=== PATIENT | female | born 1945 | race African-American/Black ===

== ENCOUNTER 2019-01-29 09:53 | Inpatient (IN) | payer MEDICARE, OTHER ==
[2019-01-29] VITALS (33 sets, daily range): BP systolic 114–153; BP diastolic 50–88
[~2019-01-29] VITALS: Ht 162.6 cm; Wt 115.8 kg
[2019-01-29 11:27] LABS: BASOPHILS % 1.1 % (0.0-2.0); EOSINOPHILS % 1.6 % (0.0-5.0); HEMATOCRIT. 42.1 % (36.0-48.0); HEMOGLOBIN. 14.1 g/dL (12.0-16.0); LYMPHOCYTES % 22.4 % (20.0-50.0); MEAN CORPUSCULAR HEMOGLOBIN 28.2 pg (28.0-32.0); MEAN CORPUSCULAR VOLUME 84.2 fL (81.0-99.0); MEAN PLATELET VOLUME 9.8 fl (7.4-10.4); MONOCYTES % 6.3 % (2.0-8.0); NEUTROPHILS % 68.6 % (40.0-76.0); PLATELET 362 x1000/uL (130-400); RED BLOOD CELL COUNT 4.99 mill/uL (4.2-5.4)
[2019-01-29 11:33] LABS: CHLORIDE 107 mEq/L (98-107)
[2019-01-29 11:42] LABS: CREATINE KINASE 36 IU/L (26-192)
[2019-01-29 12:40] LABS: CLARITY URINE CLEAR (CLEAR); COLOR URINE YELLOW (YELLOW); KETONES URINE NEGATIVE (NEGATIVE); LEUKOCYTE ESTERASE URINE NEGATIVE (NEGATIVE); NITRITE URINE NEGATIVE (NEGATIVE); OCCULT BLOOD URINE TRACE (NEGATIVE); PROTEIN URINE TRACE (NEGATIVE); SPECIFIC GRAVITY URINE 1.009 (1.005-1.030); UROBILINOGEN URINE 0.2 E.U./dL (0.2-1.0)
[2019-01-29] MEDS ORDERED: PHENYTOIN SODIUM 1,000 MG in SODIUM CHLORIDE 0.9% 100 ML IV ONE (13:30)
[2019-01-29] MEDS ORDERED: DEXT 5%/LACTATED RINGERS 1,000 ML IV ONE (13:45)
[2019-01-29 14:25] LABS: PARTIAL THROMBOPLASTIN TIME 25.5 sec (23.4-31.0)
[2019-01-29] MEDS ORDERED: DEXT 5%/LACTATED RINGERS 1,000 ML IV SCH (16:15)
[2019-01-29] MEDS ORDERED: NICARDIPINE 100 MG in SODIUM CHLORIDE 0.9% 60 ML IV PRN (16:30)
[2019-01-29] MEDS: PHENYTOIN SODIUM 100MG/2ML VIAL IV SCH (21:47)
[2019-01-30] VITALS (53 sets, daily range): BP systolic 108–144; BP diastolic 51–93
[2019-01-30] MEDS: PHENYTOIN SODIUM 100MG/2ML VIAL IV SCH (05:30)
[2019-01-30] MEDS ORDERED: ASPI-1159 MT (12:02)
[2019-01-30] MEDS ORDERED: MULT-230 MT (12:02)
[2019-01-30] MEDS ORDERED: ACETAMINOPHEN 325MG TABLET PO PRN (12:15)
[2019-01-30] MEDS ORDERED: ACETAMINOPHEN 650MG/20.3ML UDC PO PRN (12:15)
[2019-01-30] MEDS ORDERED: ASPI-1159 PO (12:57)
[2019-01-30 13:11] LABS: BASOPHILS % 1.3 % (0.0-2.0); EOSINOPHILS % 2.6 % (0.0-5.0); HEMATOCRIT. 38.9 % (36.0-48.0); HEMOGLOBIN. 13.1 g/dL (12.0-16.0); LYMPHOCYTES % 24.9 % (20.0-50.0); MEAN CORPUSCULAR HEMOGLOBIN 28.3 pg (28.0-32.0); MEAN CORPUSCULAR VOLUME 83.7 fL (81.0-99.0); MEAN PLATELET VOLUME 9.8 fl (7.4-10.4); MONOCYTES % 7.5 % (2.0-8.0); NEUTROPHILS % 63.7 % (40.0-76.0); PLATELET 314 x1000/uL (130-400); RED BLOOD CELL COUNT 4.65 mill/uL (4.2-5.4); RED CELL DISTRIBUTION WIDTH 13.9 % (11.6-14.6)
[2019-01-30 13:20] LABS: CHLORIDE 106 mEq/L (98-107)
[2019-01-30 13:29] LABS: LDL CHOLESTEROL 53 mg/dL (5-100)
[2019-01-30 13:31] LABS: HDL CHOLESTEROL 55 mg/dL (40-59)
[2019-01-30] MEDS: PHENYTOIN SODIUM EXTENDED 100MG CAPSULE PO SCH ×2 (14:07→21:43)
[2019-01-31] VITALS (7 sets, daily range): BP systolic 111–127; BP diastolic 58–72
[2019-01-31] MEDS: PHENYTOIN SODIUM EXTENDED 100MG CAPSULE PO SCH ×2 (05:48→13:19)
[2019-01-31] MEDS ORDERED: PHEN100C4 MT (10:53)
[2019-01-31 13:15] LABS: BASOPHILS % 1.3 % (0.0-2.0); EOSINOPHILS % 2.9 % (0.0-5.0); HEMATOCRIT. 38.8 % (36.0-48.0); HEMOGLOBIN. 12.9 g/dL (12.0-16.0); LYMPHOCYTES % 19.3 % (20.0-50.0); MEAN CORPUSCULAR HEMOGLOBIN 28.1 pg (28.0-32.0); MEAN CORPUSCULAR VOLUME 84.5 fL (81.0-99.0); MONOCYTES % 7.7 % (2.0-8.0); NEUTROPHILS % 68.8 % (40.0-76.0); RED BLOOD CELL COUNT 4.59 mill/uL (4.2-5.4)
[2019-01-31 13:25] LABS: CHLORIDE 104 mEq/L (98-107)
[2019-01-31 15:29] LABS: MEAN PLATELET VOLUME 10.3 fl (7.4-10.4); PLATELET 286 x1000/uL (130-400)
== END 2019-01-31 15:50 | disposition home health service (06) | DRG 65 ==
LOC: ER 09:53 → MICUSO 13:34 → EDBEDREQ 13:37 → ENRESERV 13:38 → MICUSO 16:00 → 8WST 01-30 15:00
PROVIDERS: ADMIT Family Medicine; ATTEND Family Medicine
DX: I61.1 Nontraumatic intracerebral hemorrhage in hemisphere, cortical (principal); Z68.41 Body mass index [BMI] 40.0-44.9, adult; G40.909 Epilepsy, unspecified, not intractable, without status epilepticus; E66.9 Obesity, unspecified; R73.9 Hyperglycemia, unspecified; F32.9 Major depressive disorder, single episode, unspecified; I10 Essential (primary) hypertension; Z98.51 Tubal ligation status
CPT/HCPCS: 36415; 80061; 82550; 83036; 83735; 84100; 84484; 93970; 96365; 96367; 97162; 99285; J1165; J3490; J7050; J7121

== ENCOUNTER 2019-02-16 23:18 | Emergency (ER) | payer MEDICARE, MEDICAID, OTHER ==
[~2019-02-16] VITALS: Ht 162.6 cm; Wt 100.0 kg
[~2019-02-16 23:18] MED LIST: MULT-230 MT; PHEN100C4 MT
[2019-02-17 01:42] VITALS: BP 126/77
[2019-03-12] MEDS ORDERED: CARB100O PO (10:33)
[2019-03-12] MEDS ORDERED: AMLO5TAB4 MT (10:33)
[2019-03-12] MEDS ORDERED: SIMV20TA6 MT (10:33)
[2019-03-12] MEDS ORDERED: ENAL5TAB75 MT (10:33)
[2019-03-14] MEDS ORDERED: LAM25 PO (10:43)
== END 2019-02-17 02:46 | disposition home or self-care (01) ==
LOC: ER 23:18
DX: I10 Essential (primary) hypertension (principal)
CPT/HCPCS: 93005; 99283

== ENCOUNTER 2019-03-08 18:06 | Emergency (ER) | payer MEDICARE, MEDICAID, OTHER ==
[~2019-03-08] VITALS: Ht 162.6 cm; Wt 93.0 kg
[2019-03-08] MEDS ORDERED: OXCA150T29 PO (18:35)
[2019-03-08] MEDS ORDERED: SODIUM CHLORIDE 0.9% 1,000 ML IV ONE (21:12)
[2019-03-08 21:39] LABS: BASOPHILS % 0.9 % (0.0-2.0); HEMATOCRIT. 42.5 % (36.0-48.0); HEMOGLOBIN. 14.5 g/dL (12.0-16.0); LYMPHOCYTES % 23.2 % (20.0-50.0); MEAN CORPUSCULAR VOLUME 84.8 fL (81.0-99.0); MEAN PLATELET VOLUME 9.9 fl (7.4-10.4); MONOCYTES % 7.2 % (2.0-8.0); NEUTROPHILS % 66.7 % (40.0-76.0); PLATELET 284 x1000/uL (130-400); RED BLOOD CELL COUNT 5.02 mill/uL (4.2-5.4); RED CELL DISTRIBUTION WIDTH 14.3 % (11.6-14.6)
[2019-03-08 21:42] LABS: CHLORIDE 102 mEq/L (98-107)
[2019-03-09 00:08] LABS: CLARITY URINE CLEAR (CLEAR); COLOR URINE YELLOW (YELLOW); KETONES URINE NEGATIVE (NEGATIVE); LEUKOCYTE ESTERASE URINE NEGATIVE (NEGATIVE); NITRITE URINE NEGATIVE (NEGATIVE); OCCULT BLOOD URINE NEGATIVE (NEGATIVE); PH URINE 5.5 (4.5-8.0); PROTEIN URINE NEGATIVE (NEGATIVE); SPECIFIC GRAVITY URINE 1.008 (1.005-1.030); UROBILINOGEN URINE 0.2 E.U./dL (0.2-1.0)
[2019-03-09 02:25] VITALS: BP 159/83
[2019-03-12] MEDS ORDERED: SIMV20TA6 MT (10:33)
[2019-03-12] MEDS ORDERED: AMLO5TAB4 MT (10:33)
[2019-03-12] MEDS ORDERED: CARB100O PO (10:33)
[2019-03-12] MEDS ORDERED: ENAL5TAB75 MT (10:33)
[2019-03-14] MEDS ORDERED: LAM25 PO (10:43)
== END 2019-03-09 03:29 | disposition home or self-care (01) ==
LOC: ER 19:06
DX: R42 Dizziness and giddiness (principal); G40.909 Epilepsy, unspecified, not intractable, without status epilepticus; I10 Essential (primary) hypertension
CPT/HCPCS: 36415; 71045; 80053; 80156; 81003; 83880; 84484; 85025; 93005; 96360; 99284; J7030

== ENCOUNTER 2019-03-19 01:30 | Emergency (ER) | payer MEDICARE, OTHER ==
[~2019-03-19] VITALS: Ht 162.6 cm; Wt 103.0 kg
[~2019-03-19 01:30] MED LIST changes: +AMLO5TAB4 MT; +CARB100O PO; +ENAL5TAB75 MT; +LAM25 PO; +OXCA150T29 PO; -PHEN100C4 MT; +SIMV20TA6 MT
[2019-03-19] MEDS ORDERED: SODIUM CHLORIDE 0.9% 1,000 ML IV ONE (02:59)
[2019-03-19] MEDS ORDERED: ONDANSETRON HCL 4MG/2ML INJ IV STA (02:59)
[2019-03-19 03:33] LABS: BASOPHILS % 1.1 % (0.0-2.0); EOSINOPHILS % 1.2 % (0.0-5.0); HEMATOCRIT. 39.6 % (36.0-48.0); HEMOGLOBIN. 13.7 g/dL (12.0-16.0); LYMPHOCYTES % 17.9 % (20.0-50.0); MEAN CORPUSCULAR HEMOGLOBIN 28.9 pg (28.0-32.0); MEAN CORPUSCULAR VOLUME 83.4 fL (81.0-99.0); MEAN PLATELET VOLUME 9.4 fl (7.4-10.4); MONOCYTES % 7.8 % (2.0-8.0); PLATELET 269 x1000/uL (130-400); RED BLOOD CELL COUNT 4.75 mill/uL (4.2-5.4); RED CELL DISTRIBUTION WIDTH 14.1 % (11.6-14.6)
[2019-03-19 03:47] LABS: CHLORIDE 99 mEq/L (98-107)
[2019-03-19 03:50] LABS: PROTHROMBIN TIME 10.3 sec (9.6-11.0)
[2019-03-19 03:58] LABS: CARBAMAZEPINE 5.7 ug/mL (4-12)
[2019-03-19 06:10] VITALS: BP 142/79
== END 2019-03-19 06:16 | disposition home or self-care (01) ==
LOC: ER 01:30
DX: R11.2 Nausea with vomiting, unspecified (principal); R53.1 Weakness
CPT/HCPCS: 36415; 80053; 80156; 83690; 84484; 85025; 85610; 93005; 96361; 96374; 99284; J7030

== ENCOUNTER 2019-05-16 04:47 | Emergency (ER) | payer MEDICARE, OTHER ==
[~2019-05-16] VITALS: Ht 157.5 cm; Wt 73.0 kg
[2019-05-16] MEDS ORDERED: ONDANSETRON HCL 4MG/2ML INJ IV STA (05:12)
[2019-05-16] MEDS ORDERED: SODIUM CHLORIDE 0.9% 1,000 ML IV ONE (05:12)
[2019-05-16 05:59] LABS: CHLORIDE 102 mEq/L (98-107)
[2019-05-16 06:20] LABS: CARBAMAZEPINE < 0.5 ug/mL (4-12); VALPROIC ACID < 3.0 ug/mL (50-100)
[2019-05-16 07:40] VITALS: BP 141/81
[2019-05-16 08:57] LABS: BASOPHILS % 0.7 % (0.0-2.0); EOSINOPHILS % 2.3 % (0.0-5.0); HEMATOCRIT. 39.4 % (36.0-48.0); HEMOGLOBIN. 13.5 g/dL (12.0-16.0); LYMPHOCYTES % 29.7 % (20.0-50.0); MEAN CORPUSCULAR HEMOGLOBIN 29.2 pg (28.0-32.0); MEAN CORPUSCULAR VOLUME 85.6 fL (81.0-99.0); MEAN PLATELET VOLUME 9.6 fl (7.4-10.4); MONOCYTES % 9.4 % (2.0-8.0); NEUTROPHILS % 57.9 % (40.0-76.0); PLATELET 239 x1000/uL (130-400); RED BLOOD CELL COUNT 4.61 mill/uL (4.2-5.4); RED CELL DISTRIBUTION WIDTH 13.9 % (11.6-14.6)
[2019-05-16 09:44] LABS: CLARITY URINE CLEAR (CLEAR); COLOR URINE YELLOW (YELLOW); KETONES URINE NEGATIVE (NEGATIVE); LEUKOCYTE ESTERASE URINE NEGATIVE (NEGATIVE); NITRITE URINE NEGATIVE (NEGATIVE); OCCULT BLOOD URINE 2+ (NEGATIVE); PROTEIN URINE NEGATIVE (NEGATIVE); SPECIFIC GRAVITY URINE 1.006 (1.005-1.030)
[2019-05-16] MEDS ORDERED: LAMOTRIGINE 25MG TABLET PO SCH (09:45)
[2019-05-16] MEDS ORDERED: AMLODIPINE 5MG TABLET PO ONE (09:45)
[2019-05-16] MEDS ORDERED: ENALAPRIL 5MG TABLET PO SCH (09:45)
== END 2019-05-16 10:22 | disposition home or self-care (01) ==
LOC: ER 04:47
DX: G40.901 Epilepsy, unspecified, not intractable, with status epilepticus (principal); I10 Essential (primary) hypertension
CPT/HCPCS: 36415; 71045; 80053; 80156; 80165; 81003; 85025; 93005; 96361; 96374; 99284; J2405; J7030

== ENCOUNTER 2019-06-17 11:54 | Inpatient (IN) | payer MEDICARE, OTHER ==
[~2019-06-17] VITALS: Ht 162.6 cm; Wt 97.5 kg
[2019-06-17] MEDS ORDERED: MECLIZINE 25MG TABLET PO PRN (15:30)
[2019-06-17] MEDS ORDERED: HYDROCODONE/ACETAMINOPHEN 5/325MG TABLET PO PRN (15:30)
[2019-06-17] MEDS ORDERED: DOCUSATE SODIUM 100MG CAPSULE PO PRN (15:30)
[2019-06-17] MEDS ORDERED: ONDANSETRON HCL 4MG/2ML INJ IV PRN (15:30)
[2019-06-17] MEDS ORDERED: LORAZEPAM 2MG/ML CPJ IV PRN (15:30)
[2019-06-17] MEDS ORDERED: CLONIDINE 0.1MG TABLET PO PRN (15:30)
[2019-06-17] MEDS ORDERED: GUAIFENESIN 200MG/10ML SUGAR FREE UDC PO PRN (15:30)
[2019-06-17 15:33] LABS: EOSINOPHILS % 1.5 % (0.0-5.0); HEMATOCRIT. 38.8 % (36.0-48.0); HEMOGLOBIN. 13.4 g/dL (12.0-16.0); LYMPHOCYTES % 23.3 % (20.0-50.0); MEAN CORPUSCULAR HEMOGLOBIN 29.5 pg (28.0-32.0); MEAN CORPUSCULAR VOLUME 85.2 fL (81.0-99.0); MEAN PLATELET VOLUME 9.5 fl (7.4-10.4); MONOCYTES % 8.4 % (2.0-8.0); NEUTROPHILS % 65.8 % (40.0-76.0); PLATELET 263 x1000/uL (130-400); RED BLOOD CELL COUNT 4.55 mill/uL (4.2-5.4); RED CELL DISTRIBUTION WIDTH 13.9 % (11.6-14.6)
[2019-06-17 15:38] LABS: PROTHROMBIN TIME 10.3 sec (9.6-11.0)
[2019-06-17 15:40] LABS: CHLORIDE 99 mEq/L (98-107)
[2019-06-17 15:45] LABS: ETHANOL BLOOD < 10 mg/dL
[2019-06-17 15:49] LABS: LDL CHOLESTEROL 32 mg/dL (5-100)
[2019-06-17 16:00] VITALS: BP 141/77
[2019-06-17] MEDS ORDERED: CARBAMAZEPINE 200MG/10ML UDC PO SCH (18:00)
[2019-06-17] MEDS: SODIUM CHLORIDE 0.45% 1,000 ML IV SCH (18:46)
[2019-06-17] MEDS: OXCARBAZEPINE 300MG TABLET PO SCH (21:00)
[2019-06-17] MEDS: LAMOTRIGINE 100MG TABLET PO SCH (21:27)
[2019-06-17] MEDS: LEVETIRACETAM 500MG TABLET PO SCH (21:27)
[2019-06-18] VITALS: BP 108/53
[2019-06-18 04:00] VITALS: BP 104/57
[2019-06-18 08:00] VITALS: BP 104/54
[2019-06-18] MEDS: AMLODIPINE 10MG TABLET PO SCH (09:00)
[2019-06-18] MEDS: LEVETIRACETAM 500MG TABLET PO SCH ×2 (09:55→21:01)
[2019-06-18] MEDS: LAMOTRIGINE 100MG TABLET PO SCH ×2 (09:55→21:01)
[2019-06-18] MEDS: OXCARBAZEPINE 300MG TABLET PO SCH (09:56)
[2019-06-18 12:00] VITALS: BP 126/59
[2019-06-18] MEDS: ENOXAPARIN 30MG/0.3ML SYR SUBCUT SCH ×2 (12:36→21:02)
[2019-06-18] MEDS ORDERED: SODIUM BICARBONATE 4% (2.4MEQ) 5ML VIAL IV ONE (13:19)
[2019-06-18] MEDS ORDERED: LIDOCAINE HCL 1% 20ML VIAL (Pyxis) INJ ONE (13:19)
[2019-06-18] MEDS: SODIUM CHLORIDE 0.45% 1,000 ML IV SCH (15:08)
[2019-06-18 16:00] VITALS: BP 106/60
[2019-06-18 20:00] VITALS: BP 147/84
[2019-06-19] VITALS: BP 125/74
[2019-06-19] MEDS: SODIUM CHLORIDE 0.45% 1,000 ML IV SCH ×2 (01:14→08:51)
[2019-06-19 04:00] VITALS: BP 111/65
[2019-06-19 07:06] LABS: CHLORIDE 105 mEq/L (98-107)
[2019-06-19 07:16] LABS: BASOPHILS % 0.9 % (0.0-2.0); EOSINOPHILS % 2.1 % (0.0-5.0); HEMATOCRIT. 37.2 % (36.0-48.0); HEMOGLOBIN. 12.8 g/dL (12.0-16.0); LYMPHOCYTES % 32.8 % (20.0-50.0); MEAN CORPUSCULAR HEMOGLOBIN 29.2 pg (28.0-32.0); MEAN CORPUSCULAR VOLUME 85.2 fL (81.0-99.0); MEAN PLATELET VOLUME 9.8 fl (7.4-10.4); MONOCYTES % 11.9 % (2.0-8.0); NEUTROPHILS % 52.3 % (40.0-76.0); PLATELET 265 x1000/uL (130-400); RED BLOOD CELL COUNT 4.37 mill/uL (4.2-5.4)
[2019-06-19 08:00] VITALS: BP 127/70
[2019-06-19] MEDS: AMLODIPINE 10MG TABLET PO SCH (08:48)
[2019-06-19] MEDS: MULTIVITAMINS,THER W-MINERALS TABLET PO SCH (08:49)
[2019-06-19] MEDS: LEVETIRACETAM 500MG TABLET PO SCH ×2 (08:49→20:24)
[2019-06-19] MEDS: ENALAPRIL 5MG TABLET PO SCH ×3 (08:49→10:07)
[2019-06-19] MEDS: LAMOTRIGINE 100MG TABLET PO SCH ×2 (08:49→20:24)
[2019-06-19] MEDS: ENOXAPARIN 30MG/0.3ML SYR SUBCUT SCH ×2 (08:50→20:25)
[2019-06-19 12:00] VITALS: BP 112/59
[2019-06-19 16:00] VITALS: BP 111/54
[2019-06-19] MEDS: ACETAMINOPHEN 325MG TABLET PO PRN (16:52)
[2019-06-19 20:00] VITALS: BP 124/66
[2019-06-19] MEDS ORDERED: ATORVASTATIN CALCIUM 20MG TABLET PO SCH (21:00)
[2019-06-20] VITALS: BP 132/71
[2019-06-20 04:00] VITALS: BP 118/62
[2019-06-20] MEDS: ENOXAPARIN 30MG/0.3ML SYR SUBCUT SCH (09:47)
[2019-06-20] MEDS: AMLODIPINE 10MG TABLET PO SCH (09:48)
[2019-06-20] MEDS: MULTIVITAMINS,THER W-MINERALS TABLET PO SCH (09:48)
[2019-06-20] MEDS: LAMOTRIGINE 100MG TABLET PO SCH (09:49)
[2019-06-20] MEDS: SODIUM CHLORIDE 0.45% 1,000 ML IV SCH (09:50)
[2019-06-20] MEDS: LEVETIRACETAM 500MG TABLET PO SCH (09:54)
[2019-06-20] MEDS: ACETAMINOPHEN 325MG TABLET PO PRN (09:55)
[2019-06-20 14:22] VITALS: BP 123/75
== END 2019-06-20 17:00 | disposition home health service (06) | DRG 74 ==
LOC: ER 11:54 → 8WST 13:09 → EDBEDREQ 13:10 → EDBEDREQSVC 13:10 → ENRESERV 14:46
PROVIDERS: ADMIT Hospitalist; ATTEND Hospitalist
PROC: 02HV33Z Insertion of Infusion Device into Superior Vena Cava, Percutaneous Approach (ICD-10-PCS; 2019-06-18)
PROC: B5181ZA Fluoroscopy of Superior Vena Cava using Low Osmolar Contrast, Guidance (ICD-10-PCS; 2019-06-18)
PROC: B548ZZA Ultrasonography of Superior Vena Cava, Guidance (ICD-10-PCS; 2019-06-18)
PROC: 4A00X4Z Measurement of Central Nervous Electrical Activity, External Approach (ICD-10-PCS; principal; 2019-06-19)
DX: G90.8 Other disorders of autonomic nervous system (principal); G40.909 Epilepsy, unspecified, not intractable, without status epilepticus; I10 Essential (primary) hypertension; E66.01 Morbid (severe) obesity due to excess calories; F41.9 Anxiety disorder, unspecified; M19.90 Unspecified osteoarthritis, unspecified site; Z86.73 Personal history of transient ischemic attack (TIA), and cerebral infarction without residual deficits; Z88.9 Allergy status to unspecified drugs, medicaments and biological substances; R26.9 Unspecified abnormalities of gait and mobility; E78.5 Hyperlipidemia, unspecified; Z68.36 Body mass index [BMI] 36.0-36.9, adult
CPT/HCPCS: 36415; 36573; 70551; 71045; 80320; 82542; 82962; 83721; 83735; 84484; 93005; 93970; 97166; 99285; C1725; J1650; J2060; J3490; G0480

== ENCOUNTER 2019-07-27 05:29 | Emergency (ER) | payer MEDICARE, OTHER ==
[~2019-07-27] VITALS: Ht 162.6 cm; Wt 104.0 kg
[2019-07-27] MEDS ORDERED: SODIUM CHLORIDE 0.9% 1,000 ML IV ONE (06:21)
[2019-07-27 07:23] LABS: CHLORIDE 106 mEq/L (98-107)
[2019-07-27 07:27] LABS: BASOPHILS % 0.8 % (0.0-2.0); EOSINOPHILS % 1.8 % (0.0-5.0); HEMATOCRIT. 41.3 % (36.0-48.0); HEMOGLOBIN. 14.2 g/dL (12.0-16.0); LYMPHOCYTES % 28.2 % (20.0-50.0); MEAN CORPUSCULAR HEMOGLOBIN 29.3 pg (28.0-32.0); MEAN CORPUSCULAR VOLUME 85.3 fL (81.0-99.0); MEAN PLATELET VOLUME 9.7 fl (7.4-10.4); MONOCYTES % 7.5 % (2.0-8.0); NEUTROPHILS % 61.7 % (40.0-76.0); PLATELET 300 x1000/uL (130-400); RED BLOOD CELL COUNT 4.84 mill/uL (4.2-5.4); RED CELL DISTRIBUTION WIDTH 13.9 % (11.6-14.6)
[2019-07-27 09:15] VITALS: BP 150/80
[2019-07-27] MEDS ORDERED: LEVETIRACETAM 500MG TABLET PO ONE (09:15)
[2019-07-27 09:23] LABS: CLARITY URINE CLEAR (CLEAR); COLOR URINE YELLOW (YELLOW); KETONES URINE NEGATIVE (NEGATIVE); LEUKOCYTE ESTERASE URINE NEGATIVE (NEGATIVE); NITRITE URINE NEGATIVE (NEGATIVE); OCCULT BLOOD URINE NEGATIVE (NEGATIVE); PH URINE 5.5 (4.5-8.0); PROTEIN URINE NEGATIVE (NEGATIVE); SPECIFIC GRAVITY URINE 1.008 (1.005-1.030); UROBILINOGEN URINE 0.2 E.U./dL (0.2-1.0)
== END 2019-07-27 09:50 | disposition home or self-care (01) ==
LOC: ER 06:02
DX: E86.0 Dehydration (principal); I10 Essential (primary) hypertension; G40.909 Epilepsy, unspecified, not intractable, without status epilepticus
CPT/HCPCS: 36415; 71045; 80053; 81003; 84484; 85025; 93005; 96360; 96361; 99284; J7030

== ENCOUNTER 2019-11-18 16:23 | Inpatient (IN) | payer MEDICARE, OTHER ==
[~2019-11-18] VITALS: Ht 163.8 cm; Wt 111.6 kg
[~2019-11-18 16:23] MED LIST changes: +SIMV-43 MT; -SIMV20TA6 MT
[2019-11-18] MEDS ORDERED: LEVOFLOXACIN 750MG PREMIX 150 ML IV ONE (22:15)
[2019-11-18] MEDS ORDERED: SODIUM CHLORIDE 0.9% 1000ML BAG (SEPSIS BOLUS) IV ONE (22:15)
[2019-11-18 22:47] LABS: CLARITY URINE CLEAR (CLEAR); COLOR URINE YELLOW (YELLOW); KETONES URINE NEGATIVE (NEGATIVE); LEUKOCYTE ESTERASE URINE NEGATIVE (NEGATIVE); NITRITE URINE NEGATIVE (NEGATIVE); OCCULT BLOOD URINE 2+ (NEGATIVE); PROTEIN URINE NEGATIVE (NEGATIVE); SPECIFIC GRAVITY URINE 1.004 (1.005-1.030); UROBILINOGEN URINE 0.2 E.U./dL (0.2-1.0)
[2019-11-18 22:59] LABS: CHLORIDE 106 mEq/L (98-107)
[2019-11-18 23:02] LABS: HEMATOCRIT. 41.2 % (36.0-48.0); HEMOGLOBIN. 14.2 g/dL (12.0-16.0); LYMPHOCYTES % 29.5 % (20.0-50.0); MEAN CORPUSCULAR HEMOGLOBIN 29.2 pg (28.0-32.0); MEAN PLATELET VOLUME 9.2 fl (7.4-10.4); MONOCYTES % 8.8 % (2.0-8.0); NEUTROPHILS % 58.7 % (40.0-76.0); PLATELET 290 x1000/uL (130-400); RED BLOOD CELL COUNT 4.85 mill/uL (4.2-5.4); RED CELL DISTRIBUTION WIDTH 13.7 % (11.6-14.6)
[2019-11-18 23:19] LABS: CARBAMAZEPINE < 0.5 ug/mL (4-12)
[2019-11-18] MEDS ORDERED: ASPIRIN 325MG EC TABLET PO ONE (23:30)
[2019-11-19] VITALS (7 sets, daily range): BP systolic 109–134; BP diastolic 42–79
[2019-11-19] MEDS ORDERED: ONDANSETRON HCL 4MG/2ML INJ IV PRN (09:00)
[2019-11-19] MEDS ORDERED: KEPP500 PO (09:34)
[2019-11-19] MEDS ORDERED: KEPP250 PO (09:34)
[2019-11-19] MEDS ORDERED: IBUP-2029 PO (09:34)
[2019-11-19] MEDS: LEVETIRACETAM 250MG TABLET PO SCH (09:56)
[2019-11-19 15:14] LABS: *AMPHETAMINES SCREEN URINE NEGATIVE (NEGATIVE); *BARBITURATES SCREEN URINE NEGATIVE (NEGATIVE); *BENZODIAZEPINES SCREEN URINE NEGATIVE (NEGATIVE); *COCAINE SCREEN URINE NEGATIVE (NEGATIVE); METHADONE URINE SCREEN NEGATIVE (NEGATIVE); OPIATES URINE SCREEN PRESUMTIVE POSITIVE (NEGATIVE)
[2019-11-19 15:15] LABS: CANNABINOID URINE SCREEN NEGATIVE (NEGATIVE); PHENCYCLIDINE URINE SCREEN NEGATIVE (NEGATIVE)
[2019-11-19] MEDS: LEVETIRACETAM 500MG TABLET PO SCH (17:21)
[2019-11-19] MEDS: ACETAMINOPHEN 325MG TABLET PO PRN (18:48)
[2019-11-19] MEDS: ENOXAPARIN 30MG/0.3ML SYR SUBCUT SCH (20:24)
[2019-11-20] VITALS: BP 114/57
[2019-11-20] MEDS: ACETAMINOPHEN 325MG TABLET PO PRN ×2 (01:56→08:27)
[2019-11-20 04:00] VITALS: BP 132/71
[2019-11-20 06:21] LABS: BASOPHILS % 0.5 % (0.0-2.0); EOSINOPHILS % 2.7 % (0.0-5.0); HEMATOCRIT. 36.3 % (36.0-48.0); HEMOGLOBIN. 12.5 g/dL (12.0-16.0); LYMPHOCYTES % 35.8 % (20.0-50.0); MEAN CORPUSCULAR VOLUME 84.2 fL (81.0-99.0); MEAN PLATELET VOLUME 9.4 fl (7.4-10.4); MONOCYTES % 8.7 % (2.0-8.0); NEUTROPHILS % 52.3 % (40.0-76.0); PLATELET 268 x1000/uL (130-400); RED BLOOD CELL COUNT 4.31 mill/uL (4.2-5.4); RED CELL DISTRIBUTION WIDTH 14.3 % (11.6-14.6)
[2019-11-20 06:45] LABS: CHLORIDE 108 mEq/L (98-107)
[2019-11-20 08:00] VITALS: BP 110/65
[2019-11-20] MEDS: LEVETIRACETAM 250MG TABLET PO SCH (08:27)
[2019-11-20] MEDS: ENOXAPARIN 30MG/0.3ML SYR SUBCUT SCH ×2 (08:28→21:09)
[2019-11-20 12:00] VITALS: BP 139/70
[2019-11-20 16:00] VITALS: BP_SYST 144; BP_SYST 146; BP_SYST 150; BP_SYST 156; BP_SYST 172; BP_DIAS 102; BP_DIAS 65; BP_DIAS 70; BP_DIAS 75; BP_DIAS 86
[2019-11-20] MEDS: LEVETIRACETAM 500MG TABLET PO SCH (17:48)
[2019-11-20 20:00] VITALS: BP_SYST 131; BP_SYST 151; BP_SYST 169; BP_DIAS 103; BP_DIAS 65; BP_DIAS 79
[2019-11-21] VITALS: BP 133/56
[2019-11-21 04:00] VITALS: BP 124/60
[2019-11-21] MEDS: LEVETIRACETAM 250MG TABLET PO SCH (09:59)
[2019-11-21] MEDS: ENOXAPARIN 30MG/0.3ML SYR SUBCUT SCH (10:00)
[2019-11-21] MEDS: LEVETIRACETAM 500MG TABLET PO SCH (17:58)
[2019-11-21 18:08] VITALS: BP 155/80
== END 2019-11-21 20:30 | disposition home or self-care (01) | DRG 74 ==
LOC: ER 16:23 → 5WST 23:52 → EDBEDREQDT 11-19 00:03 → EDBEDREQ 11-19 00:03 → EDBEDREQTM 11-19 00:03 → ENRESERV 11-19 05:27
PROVIDERS: ADMIT Internal Medicine; ATTEND Internal Medicine
DX: G90.8 Other disorders of autonomic nervous system (principal); I69.354 Hemiplegia and hemiparesis following cerebral infarction affecting left non-dominant side; Z68.41 Body mass index [BMI] 40.0-44.9, adult; G40.909 Epilepsy, unspecified, not intractable, without status epilepticus; E78.5 Hyperlipidemia, unspecified; I10 Essential (primary) hypertension; M19.90 Unspecified osteoarthritis, unspecified site; E66.9 Obesity, unspecified; Z87.440 Personal history of urinary (tract) infections; Z79.899 Other long term (current) drug therapy
CPT/HCPCS: 36415; 71045; 80048; 80053; 80156; 80305; 81003; 83605; 83880; 84145; 84484; 85025; 93005; 93306; 93880; 96365; 97162; 99285; J1650; J1956; J7030

== ENCOUNTER 2019-11-27 09:57 | Emergency (ER) | payer MEDICARE, OTHER ==
[~2019-11-27] VITALS: Ht 162.6 cm; Wt 105.0 kg
[~2019-11-27 09:57] MED LIST changes: -AMLO5TAB4 MT; -CARB100O PO; -ENAL5TAB75 MT; +IBUP-2029 PO; +KEPP250 PO; +KEPP500 PO; -LAM25 PO; -OXCA150T29 PO; -SIMV-43 MT
[2019-11-27 10:38] VITALS: BP 122/75
[2019-11-27 12:21] LABS: BASOPHILS % 0.9 % (0.0-2.0); EOSINOPHILS % 2.5 % (0.0-5.0); HEMATOCRIT. 39.6 % (36.0-48.0); HEMOGLOBIN. 13.7 g/dL (12.0-16.0); LYMPHOCYTES % 22.9 % (20.0-50.0); MEAN CORPUSCULAR HEMOGLOBIN 29.4 pg (28.0-32.0); MEAN CORPUSCULAR VOLUME 85.1 fL (81.0-99.0); MEAN PLATELET VOLUME 9.7 fl (7.4-10.4); MONOCYTES % 6.6 % (2.0-8.0); NEUTROPHILS % 67.1 % (40.0-76.0); PLATELET 290 x1000/uL (130-400); RED BLOOD CELL COUNT 4.65 mill/uL (4.2-5.4); RED CELL DISTRIBUTION WIDTH 13.9 % (11.6-14.6)
[2019-11-27 12:30] LABS: CHLORIDE 106 mEq/L (98-107)
== END 2019-11-27 17:32 | disposition home or self-care (01) ==
LOC: ER 09:57
DX: G40.909 Epilepsy, unspecified, not intractable, without status epilepticus (principal); H53.8 Other visual disturbances; I10 Essential (primary) hypertension; Z86.73 Personal history of transient ischemic attack (TIA), and cerebral infarction without residual deficits; Z88.8 Allergy status to other drugs, medicaments and biological substances; Z79.899 Other long term (current) drug therapy
CPT/HCPCS: 36415; 80053; 85025; 99283

== ENCOUNTER 2019-12-19 15:26 | Inpatient (IN) | payer MEDICARE ==
[~2019-12-19] VITALS: Ht 157.5 cm; Wt 114.1 kg
[2019-12-19] VITALS (9 sets, daily range): BP systolic 128–160; BP diastolic 48–87
[2019-12-19] MEDS ORDERED: SODIUM CHLORIDE 0.9% 1,000 ML IV ONE (15:51)
[2019-12-19 16:21] LABS: EOSINOPHILS % 0.3 % (0.0-5.0); HEMATOCRIT. 42.1 % (36.0-48.0); LYMPHOCYTES % 9.5 % (20.0-50.0); MEAN CORPUSCULAR HEMOGLOBIN 28.6 pg (28.0-32.0); MEAN CORPUSCULAR VOLUME 85.9 fL (81.0-99.0); MEAN PLATELET VOLUME 9.6 fl (7.4-10.4); MONOCYTES % 5.5 % (2.0-8.0); NEUTROPHILS % 83.7 % (40.0-76.0); PLATELET 294 x1000/uL (130-400); RED CELL DISTRIBUTION WIDTH 13.8 % (11.6-14.6)
[2019-12-19 16:26] LABS: CHLORIDE 100 mEq/L (98-107)
[2019-12-19 16:28] LABS: PROTHROMBIN TIME 10.6 sec (9.6-11.0)
[2019-12-19] MEDS ORDERED: POTASSIUM CHLORIDE 20MEQ TABLET SR PO ONE (16:45)
[2019-12-19 17:26] LABS: CLARITY URINE CLEAR (CLEAR); COLOR URINE YELLOW (YELLOW); KETONES URINE NEGATIVE (NEGATIVE); LEUKOCYTE ESTERASE URINE TRACE (NEGATIVE); NITRITE URINE NEGATIVE (NEGATIVE); OCCULT BLOOD URINE 3+ (NEGATIVE); PROTEIN URINE NEGATIVE (NEGATIVE); SPECIFIC GRAVITY URINE 1.007 (1.005-1.030)
[2019-12-19] MEDS ORDERED: GUAIFENESIN 200MG/10ML SUGAR FREE UDC PO PRN (17:30)
[2019-12-19] MEDS ORDERED: SODIUM CHLORIDE 0.45% 1,000 ML IV SCH (17:30)
[2019-12-19] MEDS ORDERED: HYDROCODONE/ACETAMINOPHEN 5/325MG TABLET PO PRN (17:30)
[2019-12-19] MEDS ORDERED: ONDANSETRON HCL 4MG/2ML INJ IV PRN (17:30)
[2019-12-19] MEDS ORDERED: LORAZEPAM 2MG/ML CPJ IV PRN (17:30)
[2019-12-19] MEDS ORDERED: MORPHINE SULFATE 2 MG/ML CPJ (NOT FOR IM USE) IV PRN (17:30)
[2019-12-19] MEDS ORDERED: CLONIDINE 0.1MG TABLET PO PRN (17:30)
[2019-12-19] MEDS ORDERED: DOCUSATE SODIUM 100MG CAPSULE PO PRN (17:30)
[2019-12-19] MEDS ORDERED: IOHEXOL-350 100 ML BOTTLE ONE (19:49)
[2019-12-19] MEDS ORDERED: NICARDIPINE 100 MG in SODIUM CHLORIDE 0.9% 60 ML IV PRN (21:00)
[2019-12-20] VITALS (69 sets, daily range): BP systolic 59–175; BP diastolic 40–92
[2019-12-20] MEDS: ACETAMINOPHEN 325MG TABLET PO PRN (02:17)
[2019-12-20 05:35] LABS: BASOPHILS % 0.6 % (0.0-2.0); EOSINOPHILS % 0.8 % (0.0-5.0); HEMATOCRIT. 38.6 % (36.0-48.0); HEMOGLOBIN. 13.2 g/dL (12.0-16.0); LYMPHOCYTES % 20.7 % (20.0-50.0); MEAN CORPUSCULAR HEMOGLOBIN 29.4 pg (28.0-32.0); MEAN CORPUSCULAR VOLUME 86.3 fL (81.0-99.0); MEAN PLATELET VOLUME 9.9 fl (7.4-10.4); MONOCYTES % 10.1 % (2.0-8.0); NEUTROPHILS % 67.8 % (40.0-76.0); PLATELET 273 x1000/uL (130-400); RED BLOOD CELL COUNT 4.48 mill/uL (4.2-5.4); RED CELL DISTRIBUTION WIDTH 13.8 % (11.6-14.6)
[2019-12-20 05:39] LABS: CHLORIDE 104 mEq/L (98-107)
[2019-12-20] MEDS ORDERED: LEVETIRACETAM 250MG TABLET PO SCH (09:00)
[2019-12-20] MEDS ORDERED: LEVETIRACETAM 250 MG in SODIUM CHLORIDE 0.9% 100 ML IV SCH (09:00)
[2019-12-20] MEDS: LEVETIRACETAM 500MG TABLET PO SCH ×2 (09:36→22:34)
[2019-12-20 09:37] LABS: ETHANOL BLOOD < 10 mg/dL
[2019-12-20] MEDS ORDERED: POTASSIUM CHLORIDE 20MEQ TABLET SR PO SCH (10:45)
[2019-12-21] VITALS: BP 141/72
[2019-12-21] MEDS: ACETAMINOPHEN 325MG TABLET PO PRN (00:52)
[2019-12-21 04:00] VITALS: BP 124/72
[2019-12-21 07:11] LABS: CHLORIDE 107 mEq/L (98-107)
[2019-12-21 07:29] LABS: BASOPHILS % 0.7 % (0.0-2.0); EOSINOPHILS % 2.4 % (0.0-5.0); HEMATOCRIT. 38.3 % (36.0-48.0); HEMOGLOBIN. 13.3 g/dL (12.0-16.0); LYMPHOCYTES % 28.9 % (20.0-50.0); MEAN CORPUSCULAR HEMOGLOBIN 29.6 pg (28.0-32.0); MEAN CORPUSCULAR VOLUME 85.3 fL (81.0-99.0); MONOCYTES % 9.7 % (2.0-8.0); NEUTROPHILS % 58.3 % (40.0-76.0); PLATELET 264 x1000/uL (130-400); RED CELL DISTRIBUTION WIDTH 13.8 % (11.6-14.6)
[2019-12-21 08:00] VITALS: BP 111/72
[2019-12-21] MEDS: LEVETIRACETAM 500MG TABLET PO SCH (09:15)
[2019-12-21 12:00] VITALS: BP 133/70
[2019-12-21 16:00] VITALS: BP 138/75
[2019-12-21 16:42] VITALS: BP 138/75
== END 2019-12-21 18:01 | disposition home or self-care (01) | DRG 65 ==
LOC: ER 15:26 → MICUNO 17:06 → EDBEDREQSVC 17:20 → EDBEDREQ 17:20 → ENRESERV 19:44 → 6EST 12-20 17:41
PROVIDERS: ADMIT Hospitalist; ATTEND Hospitalist
DX: I60.9 Nontraumatic subarachnoid hemorrhage, unspecified (principal); E87.1 Hypo-osmolality and hyponatremia; G40.909 Epilepsy, unspecified, not intractable, without status epilepticus; E87.6 Hypokalemia; E66.9 Obesity, unspecified; I10 Essential (primary) hypertension; Z86.73 Personal history of transient ischemic attack (TIA), and cerebral infarction without residual deficits
CPT/HCPCS: 36415; 70496; 70551; 71045; 80053; 80320; 81003; 83605; 83735; 83880; 84484; 85025; 93005; 93970; 96360; 97116; 97162; 97166; 97530; 97535; 99291; J1953; J7030; J7050; Q9967; G0480

== ENCOUNTER 2019-12-24 19:58 | Emergency (ER) | payer MEDICARE ==
[~2019-12-24] VITALS: Ht 162.6 cm; Wt 105.0 kg
[2019-12-24] MEDS ORDERED: SODIUM CHLORIDE 0.9% 1,000 ML IV ONE (23:01)
[2019-12-24 23:15] LABS: CHLORIDE 104 mEq/L (98-107)
[2019-12-24 23:28] LABS: EOSINOPHILS % 2.5 % (0.0-5.0); HEMATOCRIT. 42.8 % (36.0-48.0); HEMOGLOBIN. 14.6 g/dL (12.0-16.0); LYMPHOCYTES % 28.9 % (20.0-50.0); MEAN CORPUSCULAR HEMOGLOBIN 29.2 pg (28.0-32.0); MEAN CORPUSCULAR VOLUME 85.6 fL (81.0-99.0); MEAN PLATELET VOLUME 9.9 fl (7.4-10.4); MONOCYTES % 8.4 % (2.0-8.0); NEUTROPHILS % 59.2 % (40.0-76.0); PLATELET 292 x1000/uL (130-400); RED CELL DISTRIBUTION WIDTH 13.8 % (11.6-14.6)
[2019-12-25 01:43] VITALS: BP 152/89
== END 2019-12-25 01:54 | disposition home or self-care (01) ==
LOC: ER 19:58
DX: R42 Dizziness and giddiness (principal); T42.6X5A Adverse effect of other antiepileptic and sedative-hypnotic drugs, initial encounter; I10 Essential (primary) hypertension; Y92.89 Other specified places as the place of occurrence of the external cause; Z98.51 Tubal ligation status; Z88.8 Allergy status to other drugs, medicaments and biological substances; Z79.899 Other long term (current) drug therapy
CPT/HCPCS: 36415; 70450; 71045; 80053; 83880; 84484; 85025; 93005; 96360; 96361; 99285; J7030

== ENCOUNTER 2021-11-11 11:48 | Inpatient (IN) | payer MEDICARE, OTHER ==
[~2021-11-11] VITALS: Ht 170.2 cm; Wt 109.5 kg
[2021-11-11] MEDS ORDERED: SODIUM CHLORIDE 0.9% 1,000 ML IV ONE ×3 (12:00→14:30)
[2021-11-11 13:08] LABS: CHLORIDE 101 mEq/L (98-107)
[2021-11-11 13:10] LABS: BG BASE EXCESS 7.1 mmol/L (-2.0-2.0); BG CARBOXYHEMOGLOBIN 1.2 % (0.5-1.5); BG DEOXYHEMOGLOBIN 1.7 % (0.0-5.0); BG FRACTION INSPIRED OXYGEN 44; BG HCO3 ACT 32.1 mmol/L (22.0-26.0); BG METHEMOGLOBIN 0.4 % (0.0-1.5); BG OXYGEN SATURATION 98.3 % (92.0-98.5); BG OXYHEMOGLOBIN 96.7 % (94.0-97.0); BG PCO2 46.8 mmHg (35.0-45.0); BG PH 7.454 (7.350-7.450); BG PO2 119.1 mmHg (75.0-100.0); BG SAMPLE SITE RIGHT RADIAL; BG TOTAL HEMOGLOBIN 13.7 g/dL (12.0-18.0); BG VENT MODE NASAL CANNULA
[2021-11-11 13:10] LABS: HEMATOCRIT. 40.2 % (36.0-48.0); HEMOGLOBIN. 13.3 g/dL (12.0-16.0); MEAN CORPUSCULAR HEMOGLOBIN 28.2 pg (28.0-32.0); MEAN CORPUSCULAR VOLUME 85.4 fL (81.0-99.0); RED BLOOD CELL COUNT 4.71 mill/uL (4.2-5.4); RED CELL DISTRIBUTION WIDTH 14.1 % (11.6-14.6)
[2021-11-11 13:13] LABS: ETHANOL BLOOD < 10 mg/dL
[2021-11-11 13:30] LABS: PLATELET ESTIMATE NORMAL
[2021-11-11 13:31] LABS: MEAN PLATELET VOLUME 10.5 fl (7.4-10.4); PLATELET 299 x1000/uL (130-400)
[2021-11-11] MEDS ORDERED: POTASSIUM CHLORIDE INJ 40 MEQ in DEXT 5% WATER 250 ML IV ONE (13:45)
[2021-11-11 14:04] LABS: PHOSPHORUS 2.4 mg/dL (2.5-4.9)
[2021-11-11] MEDS: KCL 20MEQ/100ML X 2 FOR TOTAL KCL 40MEQ/200ML IV SCH ×2 (14:16→14:30)
[2021-11-11] MEDS ORDERED: PIPERACILLIN/TAZ 3.375G PREMIX 50 ML IV ONE (14:30)
[2021-11-11] MEDS ORDERED: VANCOMYCIN 1G PREMIX 200 ML IV ONE (14:30)
[2021-11-11] MEDS ORDERED: MAGNESIUM 2 G PREMIX 50 ML IV NR (14:30)
[2021-11-11] MEDS ORDERED: VANCOMYCIN 1GM PMX (XELLIA) 200 ML IV NR (14:45)
[2021-11-11] MEDS ORDERED: ONDANSETRON HCL 4MG/2ML INJ IV PRN (18:45)
[2021-11-11] MEDS ORDERED: ACETAMINOPHEN 650MG SUPP PR PRN (18:45)
[2021-11-11] MEDS ORDERED: DEXT 5%/0.45% NACL KCL 10MEQ/L 1,000 ML IV SCH (18:45)
[2021-11-11] MEDS ORDERED: PAMIDRONATE DISODIUM 90 MG in SODIUM CHLORIDE 0.9% 500 ML IV NR (19:30)
[2021-11-12] VITALS (10 sets, daily range): BP systolic 97–153; BP diastolic 68–81
[2021-11-12] MEDS ORDERED: HYDROMORPHONE HCL/PF 2MG/ML CPJ IV PRN (02:30)
[2021-11-12] MEDS ORDERED: ENOXAPARIN 40MG/0.4ML SYR SUBCUT SCH (02:30)
[2021-11-12] MEDS ORDERED: ONDANSETRON HCL 4MG/2ML INJ IV PRN (02:30)
[2021-11-12] MEDS ORDERED: ACETAMINOPHEN 650MG SUPP PR PRN (02:30)
[2021-11-12] MEDS ORDERED: NALOXONE HCL 0.4 MG/ML 1ML VIAL IV PRN (02:45)
[2021-11-12] MEDS: DEXT 5%/0.45% NACL KCL 10MEQ/L 1,000 ML IV SCH ×2 (03:00→16:20)
[2021-11-12 09:04] LABS: HEMATOCRIT. 38.5 % (36.0-48.0); HEMOGLOBIN. 12.4 g/dL (12.0-16.0); MEAN CORPUSCULAR HEMOGLOBIN 27.6 pg (28.0-32.0); MEAN CORPUSCULAR VOLUME 85.9 fL (81.0-99.0); MEAN PLATELET VOLUME 10.6 fl (7.4-10.4); PLATELET 240 x1000/uL (130-400); RED BLOOD CELL COUNT 4.48 mill/uL (4.2-5.4); RED CELL DISTRIBUTION WIDTH 14.6 % (11.6-14.6)
[2021-11-12 09:32] LABS: CHLORIDE 112 mEq/L (98-107)
[2021-11-12] MEDS: ENOXAPARIN 30MG/0.3ML SYR SUBCUT SCH ×2 (10:07→20:25)
[2021-11-12] MEDS ORDERED: CEFTRIAXONE 1 G PREMIX 50 ML IV SCH (11:30)
[2021-11-12] MEDS: LEVETIRACETAM 500MG PREMIX 100 ML IV SCH ×2 (12:30→22:16)
[2021-11-12] MEDS ORDERED: IOHEXOL-350 100 ML BOTTLE ONE ×2 (12:48→15:33)
[2021-11-12] MEDS ORDERED: CEFTRIAXONE 1,000 MG in DEXTROSE 5% WATER 50 ML IV SCH (13:00)
[2021-11-12] MEDS ORDERED: POTASSIUM PHOS,M-BASIC-D-BASIC 30 MMOL in DEXT 5% WATER 500 ML IV NR (13:00)
[2021-11-12] MEDS ORDERED: LIDOCAINE HCL 1% 20ML VIAL (Pyxis) INJ ONE (13:35)
[2021-11-12 13:46] LABS: CLARITY URINE CLEAR (CLEAR); COLOR URINE DK YELLOW (YELLOW); KETONES URINE NEGATIVE (NEGATIVE); LEUKOCYTE ESTERASE URINE 1+ (NEGATIVE); NITRITE URINE NEGATIVE (NEGATIVE); OCCULT BLOOD URINE 2+ (NEGATIVE); PROTEIN URINE NEGATIVE (NEGATIVE); SPECIFIC GRAVITY URINE 1.018 (1.005-1.030)
[2021-11-12 14:08] LABS: PLATELET ESTIMATE NORMAL
[2021-11-13] VITALS (43 sets, daily range): BP systolic 38–135; BP diastolic 16–122
[2021-11-13] MEDS: DEXT 5%/0.45% NACL KCL 10MEQ/L 1,000 ML IV SCH ×2 (05:40→15:40)
[2021-11-13] MEDS ORDERED: ETOMIDATE 2MG/ML 10ML VIAL IV ONE (08:18)
[2021-11-13] MEDS ORDERED: VECURONIUM BROMIDE 10 MG/VIAL IV ONE (08:18)
[2021-11-13] MEDS ORDERED: SODIUM CHLORIDE 0.9% 10ML VIAL ONE (08:18)
[2021-11-13] MEDS: LEVETIRACETAM 500MG PREMIX 100 ML IV SCH ×2 (08:41→22:45)
[2021-11-13] MEDS: ENOXAPARIN 30MG/0.3ML SYR SUBCUT SCH ×2 (08:41→21:00)
[2021-11-13] MEDS ORDERED: SODIUM CHLORIDE 0.9% 1000ML BAG (SEPSIS BOLUS) IV ONE (10:45)
[2021-11-13] MEDS ORDERED: SODIUM CHLORIDE 0.9% 500 ML IV NR (11:00)
[2021-11-13 11:48] LABS: BG CARBOXYHEMOGLOBIN 0.5 % (0.5-1.5); BG DEOXYHEMOGLOBIN 3.6 % (0.0-5.0); BG FRACTION INSPIRED OXYGEN 99.8; BG HCO3 ACT 20.1 mmol/L (22.0-26.0); BG METHEMOGLOBIN 0.4 % (0.0-1.5); BG OXYGEN SATURATION 96.4 % (92.0-98.5); BG OXYHEMOGLOBIN 95.5 % (94.0-97.0); BG PCO2 41.7 mmHg (35.0-45.0); BG PH 7.301 (7.350-7.450); BG PO2 89.8 mmHg (75.0-100.0); BG SAMPLE SITE RIGHT BRACHIAL; BG TOTAL HEMOGLOBIN 13.8 g/dL (12.0-18.0); BG VENT MODE MASK - NRB
[2021-11-13 11:48] LABS: HEMATOCRIT. 28.3 % (36.0-48.0); HEMOGLOBIN. 9.2 g/dL (12.0-16.0); MEAN CORPUSCULAR HEMOGLOBIN 27.9 pg (28.0-32.0); MEAN PLATELET VOLUME 11.3 fl (7.4-10.4); PLATELET 148 x1000/uL (130-400); RED BLOOD CELL COUNT 3.29 mill/uL (4.2-5.4); RED CELL DISTRIBUTION WIDTH 14.5 % (11.6-14.6)
[2021-11-13] MEDS ORDERED: FENTANYL CITRATE/PF 2,500 MCG in SODIUM CHLORIDE 0.9% 200 ML IV PRN (12:30)
[2021-11-13] MEDS ORDERED: IPRATROPIUM/ALBUTEROL 0.5-3(2.5)MG/3ML NEB HHN PRN (13:30)
[2021-11-13] MEDS: PHENYLEPHRINE 100 MG in DEXT 5% WATER 240 ML IV PRN ×2 (13:34→19:30)
[2021-11-13] MEDS ORDERED: POTASSIUM CHLORIDE INJ 40 MEQ in DEXT 5% WATER 250 ML IV ONE ×2 (14:00→18:00)
[2021-11-13 14:05] LABS: NUCLEATED RED BLOOD CELLS 3 /100 WBC; PLATELET ESTIMATE NORMAL
[2021-11-13 15:18] LABS: BG BASE EXCESS -8.1 mmol/L (-2.0-2.0); BG CARBOXYHEMOGLOBIN 0.5 % (0.5-1.5); BG DEOXYHEMOGLOBIN 2.1 % (0.0-5.0); BG FRACTION INSPIRED OXYGEN 100; BG HCO3 ACT 19.5 mmol/L (22.0-26.0); BG METHEMOGLOBIN 0.4 % (0.0-1.5); BG OXYGEN SATURATION 97.9 % (92.0-98.5); BG PCO2 48.3 mmHg (35.0-45.0); BG PH 7.225 (7.350-7.450); BG PO2 120.2 mmHg (75.0-100.0); BG SAMPLE SITE RIGHT BRACHIAL; BG TOTAL HEMOGLOBIN 14.2 g/dL (12.0-18.0); BG TOTAL RESPIRATORY RATE 24 b/min; BG VENT MODE VENT - AC
[2021-11-13] MEDS: KCL 20MEQ/100ML X 2 FOR TOTAL KCL 40MEQ/200ML IV SCH ×4 (15:47→22:50)
[2021-11-13] MEDS: PIPERACILLIN/TAZOBACTAM 3.375G in DEXT 5% WATER 50ML IV SCH ×2 (15:47→22:00)
[2021-11-13] MEDS: IPRATROPIUM/ALBUTEROL 0.5-3(2.5)MG/3ML NEB HHN SCH (16:00)
[2021-11-13] MEDS ORDERED: MAGNESIUM 2 G PREMIX 50 ML IV NR (16:00)
[2021-11-13] MEDS: NOREPINEPHRINE 32 MG in DEXT 5% WATER 218 ML IV PRN (16:36)
[2021-11-13] MEDS: ACETAMINOPHEN 325MG TABLET PO PRN (19:45)
[2021-11-13] MEDS ORDERED: PIPERACILLIN/TAZOBACTAM 3.375 G in DEXTROSE 5% WATER 50 ML IV SCH (21:00)
[2021-11-14] VITALS (13 sets, daily range): BP systolic 44–108; BP diastolic 22–75
[2021-11-14] MEDS: EPINEPHRINE 10 MG in SODIUM CHLORIDE 0.9% 240 ML IV PRN ×6 (02:00→09:32)
[2021-11-14] MEDS: ACETAMINOPHEN 325MG TABLET PO PRN (02:01)
[2021-11-14] MEDS: PHENYLEPHRINE 100 MG in DEXT 5% WATER 240 ML IV PRN ×3 (02:45→09:35)
[2021-11-14] MEDS: NOREPINEPHRINE 32 MG in DEXT 5% WATER 218 ML IV PRN ×3 (02:45→09:33)
[2021-11-14] MEDS: IPRATROPIUM/ALBUTEROL 0.5-3(2.5)MG/3ML NEB HHN SCH ×2 (03:50→09:06)
[2021-11-14] MEDS: DEXT 5%/0.45% NACL KCL 10MEQ/L 1,000 ML IV SCH (05:45)
[2021-11-14] MEDS: PIPERACILLIN/TAZOBACTAM 3.375G in DEXT 5% WATER 50ML IV SCH (06:45)
[2021-11-14] MEDS ORDERED: DEXTROSE 50% WATER 50ML SYRINGE IV SCH (09:30)
[2021-11-14] MEDS: LEVETIRACETAM 500MG PREMIX 100 ML IV SCH (09:39)
[2021-11-14] MEDS: ENOXAPARIN 30MG/0.3ML SYR SUBCUT SCH (09:46)
[2021-11-14 09:57] LABS: BG CARBOXYHEMOGLOBIN 1.4 % (0.5-1.5); BG DEOXYHEMOGLOBIN 73.3 % (0.0-5.0); BG METHEMOGLOBIN 1.7 % (0.0-1.5); BG OXYGEN SATURATION 24.4 % (92.0-98.5); BG OXYHEMOGLOBIN 23.6 % (94.0-97.0); BG PCO2 72.9 mmHg (35.0-45.0); BG PH < 6.680 (7.350-7.450); BG PO2 < 30.3 mmHg (75.0-100.0); BG SAMPLE SITE RIGHT BRACHIAL; BG TOTAL HEMOGLOBIN 10.5 g/dL (12.0-18.0); BG TOTAL RESPIRATORY RATE 18 b/min; BG VENT MODE VENT - AC
[2021-11-14] MEDS ORDERED: MORPHINE SULFATE 250 MG in DEXT 5% WATER 225 ML IV PRN (10:00)
== END 2021-11-14 11:37 | DRG 871 ==
LOC: ER 11:48 → MICUSO 14:31 → EDBEDREQTM 14:35 → EDBEDREQSVC 14:35 → EDBEDREQ 14:35 → 5EST 11-12 05:40 → CVICU 11-13 13:19
PROVIDERS: ADMIT Hospitalist; ATTEND Hospitalist
PROC: 02HV33Z Insertion of Infusion Device into Superior Vena Cava, Percutaneous Approach (ICD-10-PCS; 2021-11-12)
PROC: 5A1935Z Respiratory Ventilation, Less than 24 Consecutive Hours (ICD-10-PCS; principal; 2021-11-13)
PROC: 0BH17EZ Insertion of Endotracheal Airway into Trachea, Via Natural or Artificial Opening (ICD-10-PCS; 2021-11-13)
DX: A41.9 Sepsis, unspecified organism (principal); K85.90 Acute pancreatitis without necrosis or infection, unspecified; I26.99 Other pulmonary embolism without acute cor pulmonale; J96.01 Acute respiratory failure with hypoxia; I50.33 Acute on chronic diastolic (congestive) heart failure; J69.0 Pneumonitis due to inhalation of food and vomit; R65.21 Severe sepsis with septic shock; G92.8 Other toxic encephalopathy; C90.00 Multiple myeloma not having achieved remission; E44.1 Mild protein-calorie malnutrition; E83.39 Other disorders of phosphorus metabolism; E83.42 Hypomagnesemia; E83.52 Hypercalcemia; I27.21 Secondary pulmonary arterial hypertension; E87.6 Hypokalemia; E66.01 Morbid (severe) obesity due to excess calories; F17.200 Nicotine dependence, unspecified, uncomplicated; E11.9 Type 2 diabetes mellitus without complications; G40.909 Epilepsy, unspecified, not intractable, without status epilepticus; I11.0 Hypertensive heart disease with heart failure; Z20.822 Contact with and (suspected) exposure to COVID-19; R79.89 Other specified abnormal findings of blood chemistry; Z66 Do not resuscitate; E80.6 Other disorders of bilirubin metabolism; Z98.51 Tubal ligation status; Z74.01 Bed confinement status; Z88.8 Allergy status to other drugs, medicaments and biological substances; Z79.899 Other long term (current) drug therapy; Z79.1 Long term (current) use of non-steroidal anti-inflammatories (NSAID); Z68.37 Body mass index [BMI] 37.0-37.9, adult; Z86.711 Personal history of pulmonary embolism
CPT/HCPCS: 36415; 36600; 71045; 71275; 76937; 80048; 80053; 80320; 81003; 82140; 82375; 82805; 83605; 83735; 83880; 84100; 84145; 84484; 85025; 87070; 87426; 93306; 93970; 99291; C1725; J0696; J1650; J1953; J2370; J2405; J2430; J2543; J3010; J3370; J3475; J3480; J3490; J7030; J7040; J7050; J7060; Q9967; G0480